=== PATIENT | female | born 1960 | race Caucasian/White ===

== ENCOUNTER → 2024-02-23 | Day surgery (SDC) | payer MEDICARE ==
[2024-02-21 14:36] LABS: BASOPHILS % 0.5 % (0.0-1.0); EOSINOPHILS # (AUTO) 0.1 (0.0-0.4); EOSINOPHILS % 1.8 % (0.0-6.0); HEMATOCRIT 37.2 % (34.2-44.1); HEMOGLOBIN 11.5 g/dL (12.0-16.0); LYMPHOCYTES # (AUTO) 2.4 (1.0-3.2); LYMPHOCYTES % 31.2 % (18.0-39.1); MEAN CORPUSCULAR HEMOGLOBIN 27.4 pg (28-32); MEAN CORPUSCULAR HGB CONC 30.9 g/dL (31-35); MEAN CORPUSCULAR VOLUME 88.6 fL (81-99); MONOCYTES # (AUTO) 0.6 (0.2-0.8); MONOCYTES % 7.2 % (4.4-11.3); NEUTROPHILS # (AUTO) 4.5 (2.1-6.9); PLATELET COUNT 348 x10e3/uL (140-360); RED CELL DISTRIBUTION WIDTH 13.6 % (11.7-14.4); WHITE BLOOD COUNT 7.65 x10e3/uL (4.8-10.8)
[~2024-02-23] MED LIST: FLUOXETINE HCL20 M1 PO; HYDROCHLOROTHIA25 MG PO; LIDOCAINE HCL 1% 2 ML AMP ONE; LIDOCAINE HCL 2% LOCAL INJ 5 ML SDV VIAL INJ ONE; LOSARTAN POTAS100 MG PO; METOCLOPRAMIDE HCL 10 MG/2ML VIAL ONE; PRILOSEC OTC20 MG PO; PROPOFOL IV EMULSION 10 MG/ML 20 ML VIAL ONE; VERAPAMIL ER120 MG PO; XANAX1 MG PO; ZOLPIDEM TARTRAT5 MG PO
[2024-02-23] MEDS: LACTATED RINGER'S 1,000 ML ONE (11:28)
[2024-02-23 14:06] VITALS: TEMP 97
[2024-02-23 14:28] VITALS: BP 121/68; PULSE 78; RESP 18; O2SAT 98
== END | disposition home or self-care (01) ==
LOC: ENDO 11:09
PROVIDERS: ATTEND Internal Medicine Gastroenterology
DX: K22.2 Esophageal obstruction (principal); Z85.028 Personal history of other malignant neoplasm of stomach; K29.50 Unspecified chronic gastritis without bleeding; K31.89 Other diseases of stomach and duodenum; K20.90 Esophagitis, unspecified without bleeding; K21.9 Gastro-esophageal reflux disease without esophagitis; K44.9 Diaphragmatic hernia without obstruction or gangrene; Z71.3 Dietary counseling and surveillance; I10 Essential (primary) hypertension; Z71.89 Other specified counseling; F41.9 Anxiety disorder, unspecified; Z88.6 Allergy status to analgesic agent; Z01.810 Encounter for preprocedural cardiovascular examination; Z01.812 Encounter for preprocedural laboratory examination; Z79.899 Other long term (current) drug therapy; Z68.41 Body mass index [BMI] 40.0-44.9, adult; Z80.0 Family history of malignant neoplasm of digestive organs
CPT/HCPCS: 36415; 43239; 43450; 85025; 88305; 88342; 93005; J2001 ×2; J2470; J2704; J2765; J7121

== ENCOUNTER → 2024-09-20 | Day surgery (SDC) | payer MEDICARE, OTHER ==
[2024-09-18 15:19] LABS: BASOPHILS # (AUTO) 0.1 (0.0-0.1); BASOPHILS % 0.6 % (0.0-1.0); EOSINOPHILS # (AUTO) 0.2 (0.0-0.4); EOSINOPHILS % 2.5 % (0.0-6.0); HEMATOCRIT 35.6 % (34.2-44.1); HEMOGLOBIN 11.7 g/dL (12.0-16.0); LYMPHOCYTES # (AUTO) 2.1 (1.0-3.2); MEAN CORPUSCULAR HEMOGLOBIN 27.4 pg (28-32); MEAN CORPUSCULAR HGB CONC 32.9 g/dL (31-35); MEAN CORPUSCULAR VOLUME 83.4 fL (81-99); MONOCYTES # (AUTO) 0.7 (0.2-0.8); MONOCYTES % 7.4 % (4.4-11.3); NEUTROPHILS # (AUTO) 6.4 (2.1-6.9); NEUTROPHILS % 67.1 % (38.7-80.0); PLATELET COUNT 328 x10e3/uL (140-360); RED BLOOD COUNT 4.27 x10e6/uL (3.6-5.1); RED CELL DISTRIBUTION WIDTH 12.8 % (11.7-14.4); WHITE BLOOD COUNT 9.49 x10e3/uL (4.8-10.8)
[2024-09-18 16:02] LABS: ANION GAP 16.2 mmol/L (8-16); CALCIUM 8.9 mg/dL (8.4-10.2); CREATININE, SERUM 0.7 mg/dL (0.57-1.11)
[2024-09-18 16:04] LABS: POTASSIUM 3.2 mmol/L (3.5-5.1)
[~2024-09-20] MED LIST changes: +DEXAMETHASONE SOD PHOS INJ 4 MG/ML SDV ONE; +FENTANYL CITRATE/PF 100MCG/2 ML INJ ONE; +GLYCOPYRROLATE INJ 0.2 MG/ML VIAL ONE; +LABETALOL HCL 20 ML ONE; -LIDOCAINE HCL 1% 2 ML AMP ONE; -LIDOCAINE HCL 2% LOCAL INJ 5 ML SDV VIAL INJ ONE; -METOCLOPRAMIDE HCL 10 MG/2ML VIAL ONE; +ONDANSETRON HCL INJ 2MG/ML 2ML 2 MG/ML VIAL ONE
[2024-09-20] MEDS: CYCLOPENTOLATE HCL 2% OPTH SOLN 2 ML BTL OP ONE (09:22)
[2024-09-20] MEDS: GATIFLOXACIN(OPTH) 5 ML LIQD ONE (09:23)
[2024-09-20] MEDS: LACTATED RINGER'S 1,000 ML ONE (09:23)
[2024-09-20] MEDS: TETRACAINE HCL 0.5% OPTH SOLN 4 ML BTL ONE (09:24)
[2024-09-20] MEDS: PHENYLEPHRINE HCL 2 ML DROPS ONE (09:24)
[2024-09-20 11:15] VITALS: TEMP 98.8
[2024-09-20 11:45] VITALS: BP 127/67; PULSE 75; RESP 16; O2SAT 96
== END | disposition home or self-care (01) ==
LOC: OR 07:40
PROVIDERS: ATTEND Ophthalmology
DX: H25.12 Age-related nuclear cataract, left eye (principal); I10 Essential (primary) hypertension; E66.01 Morbid (severe) obesity due to excess calories; K21.9 Gastro-esophageal reflux disease without esophagitis; F41.9 Anxiety disorder, unspecified; Z88.6 Allergy status to analgesic agent; Z01.810 Encounter for preprocedural cardiovascular examination; Z01.812 Encounter for preprocedural laboratory examination; Z79.899 Other long term (current) drug therapy
CPT/HCPCS: 36415; 66984; 80048; 85025; 93005; J1100; J2405; J2704; J3010; J3490; J7121; V2632

== ENCOUNTER → 2024-11-15 | Day surgery (SDC) | payer MEDICARE ==
[2024-11-14 15:09] LABS: BASOPHILS # (AUTO) 0.1 (0.0-0.1); BASOPHILS % 0.8 % (0.0-1.0); EOSINOPHILS # (AUTO) 0.2 (0.0-0.4); EOSINOPHILS % 3.3 % (0.0-6.0); HEMOGLOBIN 11.4 g/dL (12.0-16.0); LYMPHOCYTES % 26.5 % (18.0-39.1); MEAN CORPUSCULAR HEMOGLOBIN 26.8 pg (28-32); MEAN CORPUSCULAR HGB CONC 31.7 g/dL (31-35); MEAN CORPUSCULAR VOLUME 84.5 fL (81-99); MONOCYTES # (AUTO) 0.6 (0.2-0.8); NEUTROPHILS # (AUTO) 4.5 (2.1-6.9); NEUTROPHILS % 61.1 % (38.7-80.0); PLATELET COUNT 333 x10e3/uL (140-360); RED BLOOD COUNT 4.26 x10e6/uL (3.6-5.1); RED CELL DISTRIBUTION WIDTH 13.6 % (11.7-14.4); WHITE BLOOD COUNT 7.37 x10e3/uL (4.8-10.8)
[2024-11-14 15:33] LABS: ANION GAP 15.2 mmol/L (8-16); CALCIUM 8.4 mg/dL (8.4-10.2); CREATININE, SERUM 0.77 mg/dL (0.57-1.11)
[2024-11-14 15:34] LABS: POTASSIUM 3.2 mmol/L (3.5-5.1)
[~2024-11-15] MED LIST changes: -FENTANYL CITRATE/PF 100MCG/2 ML INJ ONE; -LABETALOL HCL 20 ML ONE; +LIDOCAINE HCL 2% LOCAL INJ 5 ML SDV VIAL INJ ONE; -PROPOFOL IV EMULSION 10 MG/ML 20 ML VIAL ONE; +PROPOFOL IV EMULSION 50 ML IV ONE
[2024-11-15] MEDS: CYCLOPENTOLATE HCL 2% OPTH SOLN 2 ML BTL OP ONE (07:12)
[2024-11-15] MEDS: PHENYLEPHRINE HCL 2 ML DROPS ONE (07:12)
[2024-11-15] MEDS: LACTATED RINGER'S 1,000 ML ONE (07:12)
[2024-11-15] MEDS: GATIFLOXACIN(OPTH) 5 ML LIQD ONE (07:12)
[2024-11-15] MEDS: TETRACAINE HCL 0.5% OPTH SOLN 4 ML BTL ONE (07:13)
[2024-11-15 09:17] VITALS: TEMP 97.5
[2024-11-15 09:30] VITALS: BP 140/65; PULSE 86; RESP 15; O2SAT 96
== END | disposition home or self-care (01) ==
LOC: OR 05:44
PROVIDERS: ATTEND Ophthalmology
DX: H25.11 Age-related nuclear cataract, right eye (principal); I10 Essential (primary) hypertension; K21.9 Gastro-esophageal reflux disease without esophagitis; K57.90 Diverticulosis of intestine, part unspecified, without perforation or abscess without bleeding; F41.9 Anxiety disorder, unspecified; Z01.812 Encounter for preprocedural laboratory examination; Z79.899 Other long term (current) drug therapy
CPT/HCPCS: 36415; 66984; 80048; 85025; J1100; J2003; J2405; J2704; J7121; V2632